=== PATIENT | female | born 2000 | race Caucasian/White ===

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

== ENCOUNTER → 2020-11-07 | Outpatient (CLI) | payer BC | LOC: LAB 07:55 | DX: R05 Cough (principal); Z20.822 Contact with and (suspected) exposure to COVID-19 ==

== ENCOUNTER → 2021-04-23 | Outpatient (CLI) | payer BC | LOC: VAS 09:28 | DX: M79.662 Pain in left lower leg (principal) ==